=== PATIENT | female | born 1985 | race Asian ===

== ENCOUNTER 2025-10-02 09:49 | Emergency (ER) | payer OTHER, BC ==
[~2025-10-02] VITALS: Ht 157.5 cm; Wt 76.3 kg
[2025-10-02 09:55] VITALS: BP 180/91; PULSE 104; O2SAT 100
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
[2025-10-02 13:05] VITALS: RESP 16
[2025-10-02] MEDS: ketorolac trometh 15mg/ml vial 15 MG/ML ML IM ONE (13:05)
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
[2025-10-02] MEDS ORDERED: CYCL-394 PO (13:32)
[2025-10-02] MEDS ORDERED: LIDO-52 TOP (13:32)
[2025-10-02] MEDS ORDERED: IBUP-1986 PO (13:32)
[2025-10-02 13:36] VITALS: TEMP 98.7
== END 2025-10-02 13:44 | disposition home or self-care (01) ==
LOC: ER 09:49
DX: M54.6 Pain in thoracic spine (principal); Z79.899 Other long term (current) drug therapy; V43.62XA Car passenger injured in collision with other type car in traffic accident, initial encounter; Y93.89 Activity, other specified; Y92.89 Other specified places as the place of occurrence of the external cause; Y99.8 Other external cause status
CPT/HCPCS: 72074; 96372; 99283; J1885